=== PATIENT | female | born 1945 | race Caucasian/White ===

== ENCOUNTER 2017-05-20 08:10 | Emergency (ER) | payer MEDICARE ==
[~2017-05-20] VITALS: Ht 157.5 cm; Wt 61.2 kg
--- NOTE | ~2017-05-20 | CT71 ---
[facility] A Service of [facility] RADIOLOGY TEXT RESULTS PATIENT: ALON FINCH LOCATION: [facility] : 49 UNIT #: [id number] AGE: [address]: Chay Hobbs MD SEX: F ORDER DR: [id number] [facility] [address] [place], [place] [address] [id number] E MR#: [id number] Acc #: [id number] NAME: ALON FINCH. : 1945 SEX: F STUDY DATE/TIME: 05/20/2017 10:46 UNIT: [facility] ROOM: STUDY DESCRIPTION: CT Head Wo Contrast Attending Physician: Chay Hobbs M.D. Ordering Physician: Chay Hobbs M.D. Primary Care Physician: Irish Paige M.D. MEDICAL IMAGING REPORT This report is preliminary unless electronic signature is present EXAM CT of the head without contrast INDICATIONS Right facial tingling. Right foot tingling for 45 minutes today. Weakness and numbness in mouth and lips this morning. TECHNIQUE CT of the head was performed without contrast. This CT exam was performed with one or more of the following radiation dose reduction techniques: automatic exposure control, adjustment of mA and/or kV according to patient size, and iterative reconstruction. COMPARISON STUDIES There are no comparison studies available. FINDINGS There is no intracranial hemorrhage or hydrocephalus. No focal mass lesion. There are some patchy areas of low attenuation without mass effect in the cerebral white matter bilaterally which are nonspecific but likely the sequelae of chronic small vessel ischemia. More focal rounded hypodensity in the mid-brain on the right, on image 16 is indeterminate and may represent a small infarct. Further evaluation with MRI may be helpful. Carotid siphon calcifications are present. Lobular mucosal thickening involving the sphenoid sinus on the left. IMPRESSION 1. No definite acute abnormality. 2. There is a rounded hypodensity in the mid-brain on the right which is indeterminate. It may represent an area of infarction, but I am unsure if it is acute or chronic. Further evaluation with MRI may [facility] A Service of [facility] RADIOLOGY TEXT RESULTS PATIENT: ALON FINCH LOCATION: [facility] : [birth year] UNIT #: [id number] AGE: [address]: Chay Hobbs MD SEX: F ORDER DR: be helpful. Dictated by... Molina Farrar M.D. THIS IS AN ELECTRONICALLY VERIFIED REPORT Molina Farrar M.D. at 05/21/2017 4:59 PM ARS/pcl TD: 05/20/2017 15:10 JOB #: [id number] MEDICAL IMAGING REPORT Page 1 of 1 COPY
--- NOTE | ~2017-05-20 | CT23 ---
[facility] A Service of [facility] RADIOLOGY TEXT RESULTS PATIENT: ALON FINCH LOCATION: [facility] : 47 UNIT #: [id number] AGE: [address]: Chay Hobbs MD SEX: F ORDER DR: [id number] [facility] [address] [place], [place] [address] [id number] E MR#: [id number] Acc #: [id number] NAME: ALON FINCH. : 1945 SEX: F STUDY DATE/TIME: 05/20/2017 10:50 UNIT: [facility] ROOM: STUDY DESCRIPTION: CT Angio Neck Attending Physician: Chay Hobbs M.D. Ordering Physician: Chay Hobbs M.D. Primary Care Physician: Irish Paige M.D. MEDICAL IMAGING REPORT This report is preliminary unless electronic signature is present EXAM CT angiogram head and neck INDICATIONS Right facial tingling. Right foot tingling for [address] angiogram head and neck vasculature was performed following administration of IV contrast. Coronal, sagittal and 3-D reformatted images were obtained. This CT exam was performed with one or more of the following radiation dose reduction techniques: automatic exposure control, adjustment of mA and/or kV according to patient size, and iterative reconstruction. COMPARISON STUDIES Comparison is made with noncontrast head CT from the same day. FINDINGS CTA HEAD: There is no evidence for occlusion, significant stenosis, or aneurysm involving the major intracranial arteries. There is some mild carotid siphon calcification but no significant stenosis. CTA NECK: The origin of the left common carotid artery is obscured by streak artifact from the contrast bolus but the remainder of the left common and internal carotid artery in the neck is normal. The right common carotid artery is normal and the right internal carotid artery in the neck is normal. Both the vertebral arteries are patent and the left vertebral artery is dominant. The surrounding soft tissue structures of the neck are unremarkable. There is some interstitial thickening noted in the lung apices. [facility] A Service of [facility] RADIOLOGY TEXT RESULTS PATIENT: ALON FINCH LOCATION: [facility] #: [id number] : 49 UNIT #: [id number] AGE: [address]: Chay Hobbs MD SEX: F ORDER DR: Similar to NASCET criteria was utilized to determine percent of stenosis. No stenosis is identified. IMPRESSION 1. No evidence of occlusion, aneurysm, or significant stenosis involving the major intracranial arteries. 2. Normal carotid and vertebral arteries within the neck. Dictated by... Molina Farrar M.D. THIS IS AN ELECTRONICALLY VERIFIED REPORT Molina Farrar M.D. at 05/21/2017 5:00 PM MULU/gabino TD: 05/20/2017 15:39 JOB #: [id number] MEDICAL IMAGING REPORT Page 1 of 1 COPY
--- NOTE | ~2017-05-20 | CT17 ---
[facility] A Service of [facility] RADIOLOGY TEXT RESULTS PATIENT: ALON FINCH LOCATION: [facility] : 47 UNIT #: [id number] AGE: [address]: Chay Hobbs MD SEX: F ORDER DR: [id number] [facility] [address] [place], [place] [address] [id number] E MR#: [id number] Acc #: [id number] NAME: ALON FINCH : 1945 SEX: F STUDY DATE/TIME: 05/20/2017 10:50 UNIT: [facility] ROOM: STUDY DESCRIPTION: CT Angio Head Attending Physician: Chay Hobbs M.D. Ordering Physician: Chay Hobbs M.D. Primary Care Physician: Irish Paige M.D. MEDICAL IMAGING REPORT This report is preliminary unless electronic signature is present EXAM CTA head and neck HISTORY Refer below. FINDINGS Please refer to the CTA neck report on the same date for complete details. Dictated by... Molina Farrar M.D. THIS IS AN ELECTRONICALLY VERIFIED REPORT Molina Farrar M.D. at 05/21/2017 4:58 PM MULU/gabino TD: 05/20/2017 15:43 JOB #: [id number] MEDICAL IMAGING REPORT Page 1 of 1 COPY
--- NOTE | ~2017-05-20 | EKG ---
PATIENT: ALON FINCH UNIT #: [id number] Ventricular Rate: 63 BPM Atrial Rate: 63 BPM P-R Interval: 158 ms QRS Duration: 90 ms Q-T Interval: 394 ms QTC Calculation(Bezet): 403 ms P Britton: 30 degrees Calculated R Britton: -35 degrees Calculated T Britton: -3 degrees Diagnosis Line: Normal sinus rhythm Diagnosis Line: Left axis deviation Diagnosis Line: Moderate voltage criteria for LVH, may be normal Diagnosis Line: variant Diagnosis Line: Abnormal ECG Diagnosis Line: No previous ECGs available Diagnosis Line: Confirmed by MARLIN EPPS MD ([id number]) on Diagnosis Line: 05/20/2017 5:43:28 PM INTERPRETING MD: SUPRIYA SALINAS
[~2017-05-20 08:10] MED LIST: ALAVERT10 MG; ASA; CALTRATE 600 W-1 TAB; FISH OIL 1,2001 EACH; MAGNESIUM; MUCINEX; POTASSIUM; VIT B6; ZESTRIL40 MG
[2017-05-20 09:25] LABS: BASOPHIL# 0.1 X10e3 (0-0.3); BASOPHIL% 1.1 % (0-2.5); EOSINOPHIL# 0.4 X10e3 (0-0.7); EOSINOPHIL% 5.8 % (0.0-7.0); HEMATOCRIT 45.8 % (35.0-45.0); HEMOGLOBIN 15.1 gm/dL (12.0-16.0); LYMPHOCYTE# 1.4 X10e3 (1.0-3.5); LYMPHOCYTE% 22.5 % (17.0-45.0); MEAN CELL VOLUME 85.6 FL (83-96); MEAN CORPUSCULAR HEMOGLOBIN 28.2 PG (28-34); MEAN PLATELET VOLUME 8.7 FL (6.5-11.5); MONOCYTE# 0.5 X10e3 (0-1.0); MONOCYTE% 8.3 % (3.0-12.0); NEUTROPHIL# 3.7 X10e3 (1.5-7.1); NEUTROPHIL% 62.3 % (40-75); PLATELET COUNT 185 X10e3 (140-420); RED BLOOD COUNT 5.35 X10e (3.90-5.30); RED CELL DISTRIBUTION WIDTH 13.7 % (11.0-15.5)
[2017-05-20 09:28] LABS: DIFF IND NO
[2017-05-20 09:55] LABS: ALBUMIN SERUM 4.3 g/dL (3.5-5.0); BILIRUBIN, DIRECT 0.1 mg/dL (0.0-0.2); BILIRUBIN,INDIRECT 0.5 mg/dL (0.0-0.9); BILIRUBIN,TOTAL 0.6 mg/dL (0.2-2.0); BUN/CREATININE RATIO 17.5; CALCIUM SERUM 9.3 mg/dL (8.4-10.2); CREATININE SERUM 1.2 mg/dL (0.6-1.4); GLOM FILT RATE Estimated 45.8 mL/min (>60); POTASSIUM 3.9 mmol/L (3.5-5.1); PROTEIN TOTAL SERUM 7.2 g/dL (6.0-8.3)
[2017-05-20 10:24] LABS: POC - CKMB 1.3 ng/mL (0.0-7.9); POC - TROPONIN <0.05 ng/mL (<=0.05)
== END 2017-05-20 13:15 | disposition home or self-care (01) ==
LOC: CED 08:10
PROVIDERS: Emergency Medicine
DX: R20.2 Paresthesia of skin (principal); I10 Essential (primary) hypertension; Z90.710 Acquired absence of both cervix and uterus; Z88.1 Allergy status to other antibiotic agents; Z79.899 Other long term (current) drug therapy
CPT/HCPCS: 36415; 70450; 70496; 70498; 80048; 80076; 82553; 82947; 84484; 85025; 93005; 96361; 96374; 99284; J1885; Q9967

== ENCOUNTER → 2017-05-25 | Outpatient (CLI) | payer MEDICARE ==
--- NOTE | ~2017-05-25 | MR17 ---
[facility] A Service of [facility] RADIOLOGY TEXT RESULTS PATIENT: ALON FINCH LOCATION: [facility] : 47 UNIT #: [id number] AGE: [address]: ROSE LOREDO APRN SEX: F ORDER DR: [id number] [address] [address] [id number] O MR#: [id number] Acc #: [id number] NAME: ALON FINCH : 1945 SEX: F STUDY DATE/TIME: 05/25/2017 8:50 UNIT: [facility] ROOM: STUDY DESCRIPTION: MR Brain WWo Contrast Attending Physician: Rose Loredo Np Referring Physician: Rose Loredo Np Ordering Physician: Rose Loredo Np Primary Care Physician: Irish Paige M.D. MRI CENTER REPORT This report is preliminary unless electronic signature is present. EXAM MRI of the brain with and without contrast dated 05/25/[address] angiogram head and neck and CT head without contrast dated 05/20/2017. HISTORY Increasing episodes of sharp headaches on the left side of the head for the last 5 days. Right-sided episode of hemiparesis, which comes and goes. Right facial and right foot tingling with numbness in the mouth and lips. FINDINGS Multisequence, multiplanar imaging of the brain was obtained with and without contrast. GFR measured 45. 12 mL of MultiHance was administered intravenously. No acute stroke, space-occupying intracranial mass, mass effect, midline shift or hydrocephalus. Postcontrast sequences do not demonstrate enhancing lesions. Scattered multiple hyperintense T2-signal lesions are noted in the brain involving the periventricular and subcortical white matter. No evidence of acute abnormality. S-shaped nasal septal deviation is noted with relatively well aerated paranasal sinuses. Orbits with the ocular structures and mastoids do not demonstrate any significant abnormality. IMPRESSION 1. Scattered nonspecific nonenhancing hyperintense T2-signal lesions are noted in the brain predominantly involving the supratentorial white matter. They are likely related to mild chronic microvascular ischemic change or migraine based on age and statistics. 2. No enhancing lesions, acute stroke, hydrocephalus, hemorrhage or midline shift. [facility]. [facility] A Service of [facility] & [facility] RADIOLOGY TEXT RESULTS PATIENT: ALON FINCH LOCATION: [facility] : 49 UNIT #: [id number] AGE: [address]: ROSE LOREDO APRN SEX: F ORDER DR: Dictated by... Roxi Infante M.D. THIS IS AN ELECTRONICALLY VERIFIED REPORT Roxi Infante M.D. at 05/31/2017 1:16 PM CPR/mjs TD: 05/29/2017 09:50 JOB #: [id number] MRI CENTER REPORT Page 1 of 1
== END | disposition home or self-care (01) ==
LOC: SMRI 08:20
DX: R51 Headache (principal); G93.9 Disorder of brain, unspecified
CPT/HCPCS: 70553; A9581